=== PATIENT | female | born 1995 | race Caucasian/White ===

== ENCOUNTER 2023-11-04 00:39 | Emergency (ER) | payer OTHER, SELFPAY ==
[2023-11-04 00:50] VITALS: BP 105/79; PULSE 108; RESP 20; TEMP 36.6; O2SAT 98
--- NOTE | 2023-11-04 01:08 | ECG_ITS ---
Measurements Intervals [place] Rate: 128 P: 69 MA: 142 QRS: 107 QRSD: 77 T: 50 QT: 401 QTc: 587 Interpretive Statements SINUS TACHYCARDIA LOW QRS VOLTAGE IN PRECORDIAL LEADS BORDERLINE R WAVE PROGRESSION, ANTERIOR LEADS MINIMAL Q WAVES- INF/LAT LEADS BORDERLINE T WAVE ABNORMALITY- ANTERIOR LEADS BASELINE ARTIFACT- I, III ABNORMAL ECG NO PREVIOUS ECG AVAILABLE FOR COMPARISON Electronically Signed On 11-04-2023 6:49:31 FITNESS AND WELLNESS DIRECTOR by Sea Boyle D.O.
--- NOTE | 2023-11-04 01:08 | PC.NURSE ---
Poison control contacted and Aaron stated pt is out of time for any real need for harm, no labs or tests need done. VSS, and monitor if needed, other lopez case closed. Case # [id number]
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
--- NOTE | 2023-11-04 01:17 | PC.NURSE ---
Dr Menendez evaluated pt and she stated to him that at times she wished she could just go to sleep and not wake up. Decision made to have pt talk c mental health for help and then see if she can get back on her mood stabilizer pills to help c her PTSD. Pt has female officer in room c her because pt requests she stay because she feels safer c her in room. Explained to pt about medical clearance and workup for [address] eval.
[2023-11-04 01:29] LABS: Basophils Absolute Auto 0.06 K/mm3 (0.00-0.10); Basophils Percent Auto 0.9 % (0.0-1.0); Eosinophils Absolute Auto 0.04 K/mm3 (0.02-0.50); Eosinophils Percent Auto 0.6 % (1.0-6.0); Hematocrit 45.1 % (35.0-49.0); Hemoglobin 15.4 g/dL (12.0-15.0); Immature Granulocyte Absolute 0.06 K/mm3 (0.00-0.00); Immature Granulocyte Percent A 0.9 % (0.0-0.0); Lymphocytes Absolute Auto 2.29 K/mm3 (1.10-4.50); Lymphocytes Percent Auto 33.5 % (18.0-42.0); Mean Corpuscular HGB Conc 34.1 g/dL (32.0-36.0); Mean Corpuscular Hemoglobin 28.8 pg (27.0-31.0); Mean Corpuscular Volume 84.5 fL (78.0-102.0); Mean Platelet Volume 11.4 fl (9.2-11.8); Monocytes Absolute Auto 0.38 K/mm3 (0.10-0.90); Monocytes Percent Auto 5.6 % (2.0-11.0); Neutrophils Percent Auto 58.5 % (50.0-70.0); Platelet Count Result 287 K/mm3 (150-420); Red Blood Count 5.34 M/mm3 (4.20-5.40); Red Cell Distribution Width 12.6 % (11.6-14.4); White Blood Count 6.8 K/mm3 (4.8-10.8)
[2023-11-04 01:50] LABS: Alanine Aminotransferase 32 U/L (14-59); Albumin Level 3.8 g/dL (3.4-5.0); Alkaline Phosphatase 79 U/L (46-116); Anion Gap 6 mmol/L (8-16); Aspartate Amino Transferase 16 U/L (15-37); Bilirubin,Total 1.2 mg/dL (0.00-1.00); Blood Urea Nitrogen 4 mg/dL (7-18); Calcium 9.3 mg/dL (8.5-10.1); Carbon Dioxide 31 mmol/L (21-32); Chloride 103 mmol/L (98-108); Estimated CRCL calculation 84 ml/min; Estimated Glomerular Filt Rate > 60; Glucose 102 mg/dL (70-99); Osmolality Calculated 286 mOsm/kg (285-295); Potassium 3.2 mmol/L (3.5-5.1); Sodium 140 mmol/L (136-145); Thyroid Stimulating Hormone 3.38 uIU/mL (0.36-3.74); Total Protein 7.2 g/dL (6.4-8.2)
[2023-11-04] MEDS: ACETAMINOPHEN 500 MG TABLET 1000 MG PO (01:53)
[2023-11-04 02:05] LABS: Acetaminophen 0 ug/mL (10-30); Ethanol < 3 mg/dL (0-6); Salicylate < 0.3 mg/dL (2.8-20.0)
[2023-11-04 02:07] LABS: Appearance Urine Clear (Clear); Bilirubin Urine Negative (Negative); Blood Urine Trace-Intact (Negative); Color Urine Light Yellow (Yellow); Glucose Urine UA Negative (Negative); Ketones Urine Negative (Negative); Leukocyte Esterase Ur 2+ LEU/UL (Negative); Nitrate Urine Positive (Negative); Protein Urine Negative (Negative); Urobilinogen Urine 0.2 mg/dL (0.2-1.0)
[2023-11-04 02:14] LABS: Add Urine Microscopic? YES; Bacteria Urine 4+ /hpf; Squamous Epithelial Cell Urine Rare /hpf (Few); WBC Urine >75 /hpf (0-3)
--- NOTE | 2023-11-04 02:15 | PC.NURSE ---
Pt resting c officer and brother in law in room. Talking c them, pt remains calm, tearful at times and anxious appearing. Updated info on arrival time of [facility] for eval given to pt. and family member.
[2023-11-04 02:17] LABS: Amphetamine Screen Urine Positive (Negative); Barbiturate Screen Urine Negative (Negative); Benzodiazepines Screen Urine Positive (Negative); Cannabinoid Screen Urine Positive (Negative); Cocaine Screen Urine Negative (Negative); Methadone Screen Urine Negative (Negative); Opiate Screen Urine Negative (Negative); Phencyclidine Screen Urine Negative (Negative)
[2023-11-04 02:57] VITALS: BP 114/76; PULSE 100; RESP 18; O2SAT 98
[2023-11-04] MEDS: IBUPROFEN 600 MG TABLET PO (03:52)
--- NOTE | 2023-11-04 03:53 | PC.NURSE ---
Raisa from [facility] counselor in to speak c pt. Family and officer stepped out of room for pt to speak c counselor alone. VSS. Pt sipping on drink, no c/o at this time.
--- NOTE | 2023-11-04 05:03 | PC.NURSE ---
Pt asked her brother in law to come in room c counselor. Officer left at this time. Counselor still in room c pt and family member.
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
[2023-11-04] MEDS: LORazepam (*CRX) 0.5 MG TABLET PO (05:21)
[2023-11-04 05:52] VITALS: BP 100/79; PULSE 74; RESP 18; TEMP 36.6; O2SAT 99
--- NOTE | 2023-11-06 15:42 | PC.NURSE ---
11/06/23 received urine culture back today and reviewed with Dr Brar and Cipro 500mg po BID for 7 days called to [facility] pharmacy at [phone] pt contacted and pharmacy provided STEPHANIE SCHAEFFER RN
== END 2023-11-04 06:01 | disposition home or self-care (01) ==
PROVIDERS: Emergency Provider Emergency Medicine
DX: F41.9 Anxiety disorder, unspecified (principal); F32.A Depression, unspecified; T42.4X1A Poisoning by benzodiazepines, accidental (unintentional), initial encounter
CPT/HCPCS: 36415; 80053; 80307; 81001; 84443; 85025; 87077; 87086; 87088; 87186; 93005; 99284; A9270